=== PATIENT | male | born 1980 | race Caucasian/White ===

== ENCOUNTER 2016-10-30 06:39 | Day surgery (SDC) | payer BC ==
--- NOTE | ~2016-10-30 | OP ---
Record Of Operation [facility] [address] [place]. [address] NAME: GILMER MANZANO : 84 STATUS : [facility]#: [id number] AGE: 36 ADM/REG DATE : 10/30/16 MR#: [id number] REPORT SERV DATE: 10/30/16 DICTATED BY: RAJ ANN JR. DATE: 10/30/16 REPORT STATUS : Draft TRANSCRIBED BY: MODMack DATE: 10/30/16 DATE OF PROCEDURE: 10/30/2016 SURGEON: Raj Ann M.D. PREOPERATIVE DIAGNOSIS: Right renal stone. POSTOPERATIVE DIAGNOSIS: Right parenchymal kidney stone. PROCEDURE PERFORMED: Cystoscopy, right retrograde pyelogram. COMPLICATIONS: None. CONSULTATIONS: None. ANESTHESIA: General with laryngeal mask airway. SPECIMENS: None. DRAINS: None. ESTIMATED BLOOD LOSS: None. INDICATION: Mr. Manzano is a 36-year-old gentleman, whom I have been following with a right renal stone. He is virtually asymptomatic from this stone, but feels that it is causing him some issues with lymph node swelling and generalized malaise. I attempted lithotripsy on the stone x1. He has had a noncontrast CT and a KUB but no contrasted imaging. He comes today for ureteroscopic management of the stone since he failed lithotripsy originally. PROCEDURE IN DETAIL: After the patient was identified and proper informed consent was obtained, he was taken to the operating room. General anesthesia was performed without complication using a laryngeal mask airway. He was then prepped and draped in the normal sterile fashion in the lithotomy position. Cystoscopic examination of the urethra and bladder were performed and found to be normal. The left and right ureteral orifices were in their normal position, normal size. Retrograde pyelogram was performed on the right side, which reveals a normal course and caliber to the ureter. The collecting system was somewhat elongated, but not dilated. He had a normal appearing UPJ and renal pelvis. The calyces were not dilated and a nice, sharp calyceal ends. The stone which was visualized on the plain film was obviously outside the collecting system, in the superior pole medial side of the collecting system. I reviewed back through his noncontrast CT and KUB. I did not see any evidence that this is outside the collecting system at that time, however, without contrast this would be difficult to ascertain as the stone pretty much would fill calyces in the normal size. At that point, I did not feel it was necessary to perform ureteroscopy and simply ended the procedure by draining the bladder. The patient was awakened in the operating room and transferred to the postanesthesia care unit in stable condition. I have recommended a 4-phase renal CT to elucidate the etiology of the stone. We will see him back Record Of [address] [address] NAME: GILMER MANZANO : 84 STATUS : [facility] PAT#: [id number] AGE: 36 ADM/REG DATE : 10/30/16 MR#: [id number] REPORT SERV DATE: 10/30/16 DICTATED BY: RAJ ANN JR. DATE: 10/30/16 REPORT STATUS : Draft TRANSCRIBED BY: CARMEN DATE: 10/30/16 in the office after the 4-phase renal CT is completed. JOE/CARMEN Raj Ann Jr., M.D. / [id number] CC: Raj Ann Jr., M.D.
[~2016-10-30 06:39] MED LIST: *DENIES; MULTIPLE VIT PO; [UNRECOGNIZED DRUG - OTHER]
[2016-10-30 11:31] LABS: CREATININE 1.51 MG/DL (0.70-1.30)
== END 2016-10-30 13:31 | disposition home or self-care (01) ==
LOC: SDC 06:39
PROVIDERS: Urology
PROC: BT1DYZZ Fluoroscopy of Right Kidney, Ureter and Bladder using Other Contrast (ICD-10-PCS; principal; 2016-10-30 07:45)
DX: N20.0 Calculus of kidney (principal); K21.9 Gastro-esophageal reflux disease without esophagitis; K76.89 Other specified diseases of liver; Z98.890 Other specified postprocedural states; Z87.442 Personal history of urinary calculi
CPT/HCPCS: 74178; 74420; 82565; C1758; C1769; J2250; J2405; J2710; J3010; Q9967